=== PATIENT | male | born 1965 | race African-American/Black ===

== ENCOUNTER 2016-06-18 16:27 | Outpatient (CLI) | payer OTHER ==
[2015-01-03 12:53] VITALS: BP 141/67
== END 2016-06-18 16:30 ==
LOC: LABRHC 16:27
PROVIDERS: ATTEND Family Medicine
DX: R10.30 Lower abdominal pain, unspecified (principal)
CPT/HCPCS: 87086

== ENCOUNTER 2017-07-18 14:46 | Outpatient (CLI) | payer OTHER ==
[2015-01-03 12:53] VITALS: BP 141/67
== END 2017-07-18 14:47 ==
LOC: LAB 14:46
PROVIDERS: ATTEND Family Medicine
DX: R53.83 Other fatigue (principal)
CPT/HCPCS: 36415; 84443

== ENCOUNTER 2018-03-18 11:44 | Outpatient (CLI) | payer OTHER ==
[2015-01-03 12:53] VITALS: BP 141/67
[2018-03-18 12:53] LABS: eGFR (Non-African) > 60
[2018-03-18 12:55] LABS: MEAN CORPUSCULAR HEMOGLOBIN 32.1 pg (28.0-34.0)
[2018-03-18 12:56] LABS: BASOPHILS % 0.3 (0.0-1.5); EOSINOPHILS % 2.3 % (0.0-6.8); MONOCYTES % 6.2 % (0.0-11.0)
== END 2018-03-18 11:45 ==
LOC: LAB 11:44
PROVIDERS: ATTEND Physician Assistant
DX: Z00.00 Encounter for general adult medical examination without abnormal findings (principal); Z13.6 Encounter for screening for cardiovascular disorders; Z12.5 Encounter for screening for malignant neoplasm of prostate
CPT/HCPCS: 80053; 80061; 85025; G0103

== ENCOUNTER 2018-07-10 07:27 | Outpatient (CLI) | payer OTHER ==
[2015-01-03 12:53] VITALS: BP 141/67
== END 2018-07-10 07:30 ==
LOC: LAB 07:27
PROVIDERS: ATTEND Family Medicine
DX: E78.00 Pure hypercholesterolemia, unspecified (principal)
CPT/HCPCS: 36415; 80061

== ENCOUNTER 2019-03-27 10:37 | Outpatient (CLI) | payer OTHER ==
[2015-01-03 12:53] VITALS: BP 141/67
[2019-03-27 10:49] LABS: BASOPHILS % 0.4 % (0.0-1.5)
[2019-03-27 11:46] LABS: HDL 53 mg/dL (>40); eGFR (Non-African) > 60
== END 2019-03-27 10:42 ==
LOC: LAB 10:37
PROVIDERS: ATTEND Family Medicine
DX: Z13.0 Encounter for screening for diseases of the blood and blood-forming organs and certain disorders involving the immune mechanism (principal); Z13.220 Encounter for screening for lipoid disorders; Z12.5 Encounter for screening for malignant neoplasm of prostate
CPT/HCPCS: 36415; 80053; 80061; 84153; 85025